=== PATIENT | female | born 1965 | race Caucasian/White ===

== ENCOUNTER 2024-01-10 13:17 | Emergency (ER) | payer SELFPAY ==
[2024-01-10] VITALS (20 sets, daily range): BP systolic 83–170; BP diastolic 52–94; PULSE 76–102; RESP 16–32; TEMP 36.8; O2SAT 96–99; BMI 26.6
--- NOTE | 2024-01-10 13:44 | ED.GENADULT ---
HPI - General Adult General Chief complaint: Nasal Problem Stated complaint: nose bleed sent by [facility] Time Seen by Provider: 01/10/24 13:37 Source: patient Mode of arrival: Wheelchair History of Present Illness HPI narrative: Patient is a 59-year-old female who was sent from the walk-in clinic for evaluation of a bleeding nose. Patient is not on blood thinners. Patient states she woke up this morning and noticed that there was something coming from her nose which she very quickly noticed was blood. She was able to get it stopped for a short period of time but it started bleeding once again. Is coming from the right nostril. No trauma. Review of Systems ENT Ears, Nose, Mouth, and Throat: Reports system reviewed and no additional complaints, except as documented Respiratory Respiratory: Reports system reviewed and no additional complaints, except as documented Integumentary/Breasts Skin/Breast: Reports system reviewed and no additional complaints, except as documented Hematologic/Lymphatic On Anticoagulants: No Patient History Social History Smoking Status: Never smoker Smoking Status: Never smoker Substance Use Type: does not use Exam Initial Vital Signs Initial Vital Signs: Vital Signs Temperature 98.2 F 01/10/24 13:27 Respiratory Rate 16 01/10/24 13:27 Blood Pressure 143/94 H 01/10/24 13:27 HENMT Nose: epistaxis Face and sinus: normal facial exam Mouth: oral mucosae normal Resp Effort & Inspection: normal respiratory effort Cardio Rate: regular rate Skin General: no rashes or lesions noted Neuro General: patient alert, patient awake and moves all extremities Procedures Epistaxis Control Nostril: right Direct Inspection: unable to visualize Device Inserted: other (Rhino rocket) Patient Tolerated Procedure: well Course Orders Ordered: ED Orders 01/10/24 13:35 Basic Metabolic Panel Stat Complete Blood Count AUTO DIFF Stat Discontinued Medications Oxymetazoline HCl (Oxymetazoline Nasal [place] 30 Ml) 2 sprays NASAL NOW ONE Stop: 01/10/24 13:38 Tranexamic Acid (Tranexamic Acid 1,000 Mg Vial) 1,000 mg TOP NOW ONE Stop: 01/10/24 13:38 Last Admin: 01/10/24 13:47 Dose: 1,000 mg Documented By: CLARK Vital Signs Vital signs: Vital Signs - 8 hr 01/10/24 13:27 01/10/24 13:31 01/10/24 13:33 Temperature 98.2 F Pulse Rate 102 H Respiratory Rate 16 Blood Pressure 143/94 H 83/52 L Pulse Oximetry 97 01/10/24 13:33 01/10/24 13:37 01/10/24 13:37 Temperature Pulse Rate 101 H 89 Respiratory Rate Blood Pressure 134/77 Pulse Oximetry 98 96 01/10/24 13:40 01/10/24 13:40 01/10/24 13:45 Temperature Pulse Rate 93 H 91 H Respiratory Rate 24 21 Blood Pressure 139/82 Pulse Oximetry 97 98 01/10/24 13:45 01/10/24 13:51 01/10/24 13:51 Temperature Pulse Rate 93 H Respiratory Rate 18 Blood Pressure 132/73 127/80 Pulse Oximetry 98 Medical Decision Making Lab Data 01/10/24 13:35 01/10/24 13:35 Labs: Lab Results 01/10/24 Range/Units 13:35 WBC 7.9 (4.5-11.0) X10^3/uL RBC 4.37 (4.0-5.2) X10^6/uL Hgb 12.9 (12.0-16.0) g/dL Hct 38.1 (36-46) % MCV 87.1 (80-100) fL MCH 29.5 (26-34) PG MCHC 33.8 (30-36) % RDW 13.6 (11.6-14.8) % Plt Count 425 H (150-400) X10^3/uL Neut % (Auto) 42.1 L (50-75) % Lymph % (Auto) 49.6 H (25-40) % [place] % (Auto) 5.4 (3-14) % Eos % (Auto) 2.1 (2-4) % Baso % (Auto) 0.8 (0-2) % Neut # (Auto) 3300 (9883-7340) /uL Lymph # (Auto) 3900 (0454-0824) /uL [place] # (Auto) 400 (0-900) /uL Eos # (Auto) 200 (0-450) /uL Baso # (Auto) 100 (0-100) /uL Sodium 138 (137-145) mmol/L Potassium 3.9 (3.4-5.1) mmol/L Chloride 108 H (98-107) mmol/L Carbon Dioxide 21 L (22-32) mmol/L BUN 6 L (7-17) mg/dL Creatinine 0.70 (0.52-1.04) mg/dL Estimated GFR > 60 (>60) mL/min BUN/Creatinine Ratio 8.6 (6-22) Glucose 137 H (70-100) mg/dL Calcium 9.7 (8.4-10.2) mg/dL MDM Narrative Medical decision making narrative: Patient had quite a bit of bleeding upon arrival so instead of using the Afrin and nasal compression I went to a 5.5 TXA soaked rhino rocket. This is placed in the right nares without issue. Bleeding stopped afterwards. Just prior to my evaluation she did have an episode where she became diaphoretic and hypotensive. During this time she also needed to have a bowel movement. I suspect that this was more of a vagal reaction. Her H&H is unremarkable. After period of observation she was able to ambulate around the department. Will discharge patient home with the nasal tampon in place and instructions to contact ENT for follow-up. Discharge Plan Departure Patient Disposition: Home Clinical Impression: Epistaxis Instructions: DI for Nosebleed Activity Restrictions/Additional Instructions: The nasal packing in your right nares should stay in place until you follow-up with the ear nose and throat doctor. Please contact them at the number provided below for follow-up in the next couple days. If the packing happens to come out at home on its own as long as you do not bleed again you do not necessarily need to return to the emergency department immediately. Contact your primary doctor for a follow-up as well. Referrals: Elgiio Reid MD [Physician] - Stand Alone Forms: Patient Portal/API
[2024-01-10] MEDS: TRANEXAMIC ACID 1,000 MG VIAL 1000 MG TOP (13:47)
[2024-01-10 13:49] LABS: Add Manual Diff / Slide Review NO; Basophils Absolute Auto 100 /uL (0-100); Basophils Percent Auto 0.8 % (0-2); Eosinophils Absolute Auto 200 /uL (0-450); Eosinophils Percent Auto 2.1 % (2-4); Hematocrit 38.1 % (36-46); Hemoglobin 12.9 g/dL (12.0-16.0); Lymphocytes Absolute Auto 3900 /uL (1100-4500); Lymphocytes Percent Auto 49.6 % (25-40); Mean Corpuscular HGB Conc 33.8 % (30-36); Mean Corpuscular Hemoglobin 29.5 PG (26-34); Mean Corpuscular Volume 87.1 fL (80-100); Monocytes Absolute Auto 400 /uL (0-900); Monocytes Percent Auto 5.4 % (3-14); Neutrophils Absolute Auto 3300 /uL (1500-7000); Neutrophils Percent Auto 42.1 % (50-75); Platelet Count 425 X10^3/uL (150-400); Red Blood Cell Count 4.37 X10^6/uL (4.0-5.2); Red Cell Distribution Width 13.6 % (11.6-14.8); White Blood Cell Count 7.9 X10^3/uL (4.5-11.0)
[2024-01-10 13:59] LABS: BUN Creatinine Ratio 8.6 (6-22); Blood Urea Nitrogen 6 mg/dL (7-17); Calcium 9.7 mg/dL (8.4-10.2); Carbon Dioxide 21 mmol/L (22-32); Chloride 108 mmol/L (98-107); Estimated Glomerular Filt Rate > 60 mL/min (>60); Glucose 137 mg/dL (70-100); HEMOLYSIS < 15 (0-50); Potassium 3.9 mmol/L (3.4-5.1); Sodium 138 mmol/L (137-145)
[2024-01-10] MEDS: ACETAMINOPHEN SUSP 650 MG/20.3 ML UDC PO (15:31)
== END 2024-01-10 16:30 | disposition home or self-care (01) ==
PROVIDERS: Emergency Provider Emergency Medicine
DX: R04.0 Epistaxis (principal)
CPT/HCPCS: 30903; 36415; 80048; 85025; 99283; 99284